=== PATIENT | female | born 1990 | race Two or more races ===

== ENCOUNTER 2017-04-26 17:04 | Emergency (ER) | payer MEDICAID ==
[~2017-04-26] VITALS: Ht 160 cm; Wt 57.6 kg
[2017-04-26 17:04] VITALS: BP 105/70
== END 2017-04-26 18:29 | disposition home or self-care (01) ==
LOC: ER 17:10
DX: N63 Unspecified lump in breast (principal)
CPT/HCPCS: A4606; Z7502; Z7610

== ENCOUNTER 2018-01-15 08:27 | Emergency (ER) | payer MEDICAID ==
[~2018-01-15] VITALS: Ht 162.6 cm; Wt 63.5 kg
[2018-01-15 08:30] VITALS: BP 133/87
== END 2018-01-15 08:57 | disposition home or self-care (01) ==
LOC: ER 08:39
DX: L30.9 Dermatitis, unspecified (principal)
CPT/HCPCS: 99283; A4606; Z7610

== ENCOUNTER 2018-04-21 15:54 | Emergency (ER) | payer MEDICAID ==
[~2018-04-21] VITALS: Ht 160 cm; Wt 58.5 kg
[2018-04-21] MEDS ORDERED: DOXYCYCLINE (16:00)
[2018-04-21] MEDS ORDERED: TRIAMCINOLONE 0.1% CREAM (16:00)
--- NOTE | 2018-04-21 16:05 | NUR ---
pt self presents to er bed 13. c/o headache since yesterday, cold and tingly. pt denies numbness and weakness to extremity. denies cp. stablel vitals. awaiting md mancia.
--- NOTE | 2018-04-21 16:18 | NUR ---
DR STOREY AT BEDSIDE FOR EVAL.
[2018-04-21 16:42] LABS: APPEARANCE,URINE Clear (CLEAR); BILIRUBIN,URINE Negative (NEGATIVE); BLOOD, URINE Negative Ery/uL (NEGATIVE); COLOR,URINE Yellow (YELLOW); KETONES,URINE Negative (NEGATIVE); LEUKOCYTE ESTERASE ,URINE Negative (NEGATIVE); NITRITE, URINE Negative (NEGATIVE); PROTEIN,URINE Negative (NEGATIVE); UGLUCOSE Negative (NEGATIVE); UROBILINOGEN,URINE 0.2 EU/dL (0.2)
[2018-04-21] MEDS ORDERED: KETOROLAC TROMETHAMINE 15 MG/ML VIAL ONE (16:53)
[2018-04-21] MEDS ORDERED: KETOROLAC TROMETHAMINE INJ 60 MG/2 ML VIAL IM ONE (17:00)
--- NOTE | 2018-04-21 17:13 | NUR ---
Patient discharged to home in stable condition. Written and verbal after care instructions given. Patient verbalizes understanding of instruction.
[2018-04-21 17:14] VITALS: BP 125/66
== END 2018-04-21 17:15 | disposition home or self-care (01) ==
LOC: ER 15:57
DX: R51 Headache (principal)
CPT/HCPCS: 81000-TC; 84703-TC; A4606; J1885; Z7610

== ENCOUNTER 2018-06-25 11:26 | Emergency (ER) | payer SELFPAY ==
[~2018-06-25] VITALS: Ht 160 cm; Wt 55.8 kg
[2018-06-25 11:26] VITALS: BP 116/76
[~2018-06-25 11:26] MED LIST: DOXYCYCLINE; TRIAMCINOLONE 0.1% CREAM
== END 2018-06-25 12:14 | disposition home or self-care (01) ==
LOC: ER 11:35
DX: J02.9 Acute pharyngitis, unspecified (principal); K12.0 Recurrent oral aphthae
CPT/HCPCS: 99281; A4606; Z7610; Z7502

== ENCOUNTER 2018-06-30 14:38 | Emergency (ER) | payer SELFPAY ==
[~2018-06-30] VITALS: Ht 160 cm; Wt 56.2 kg
[2018-06-30 15:43] LABS: BASOPHILS % (AUTO) 0.5 % (0.0-2.0); EOSINOPHILS % (AUTO) 2.5 % (0.0-6.0); HEMATOCRIT 37 % (33-45); HEMOGLOBIN 12.1 g/dL (11.5-14.8); LYMPHOCYTES # (AUTO) 1.3 /CMM (0.8-4.8); LYMPHOCYTES % (AUTO) 22.8 % (20.0-44.0); MEAN CORPUSCULAR HGB CONC 33 g/dl (31.0-36.0); MEAN CORPUSCULAR VOLUME 89 fL (82-100); MONOCYTES # (AUTO) 0.4 /CMM (0.1-1.30); MONOCYTES % (AUTO) 6.5 % (2.0-12.0); NEUTROPHILS # (AUTO) 3.9 /CMM (1.8-8.9); NEUTROPHILS % (AUTO) 67.7 % (43.0-81.0); PLATELET COUNT (AUTO) 294 /CMM (150-450); RDW COEFFICIENT OF VARIATION 12.3 (11.5-15.0); RED BLOOD CELL COUNT(AUTO) 4.12 MIL/uL (4.0-5.2); WHITE BLOOD COUNT (AUTO) 5.8 K/uL (4.3-11.0)
[2018-06-30 15:53] LABS: CALCIUM, SERUM 8.4 mg/dL (8.5-10.1); CREATININE 0.8 mg/dL (0.6-1.3)
--- NOTE | 2018-06-30 16:10 | NUR ---
PT REC'D TO C.O PAIN BACK FOR 3 DAYS AWAITING EVALUATION BY ER PROVIDER.
[2018-06-30 16:12] VITALS: BP 131/80
[2018-06-30 16:42] LABS: APPEARANCE,URINE CLEAR (CLEAR); BILIRUBIN,URINE NEGATIVE (NEGATIVE); BLOOD, URINE NEGATIVE Ery/uL (NEGATIVE); COLOR,URINE YELLOW (YELLOW); KETONES,URINE NEGATIVE (NEGATIVE); LEUKOCYTE ESTERASE ,URINE NEGATIVE (NEGATIVE); NITRITE, URINE NEGATIVE (NEGATIVE); PROTEIN,URINE NEGATIVE (NEGATIVE); UGLUCOSE NEGATIVE (NEGATIVE); UROBILINOGEN,URINE 0.2 EU/dL (0.2)
== END 2018-06-30 16:14 | disposition home or self-care (01) ==
LOC: ER 14:40
DX: M54.42 Lumbago with sciatica, left side (principal); M54.41 Lumbago with sciatica, right side; F41.9 Anxiety disorder, unspecified
CPT/HCPCS: 36415; 80048; 81001; 84703; 85025; 99284; A4606; Z7610; 81000-TC

== ENCOUNTER 2018-10-05 09:07 | Emergency (ER) | payer MEDICAID ==
[~2018-10-05] VITALS: Ht 160 cm; Wt 54.4 kg
[2018-10-05 09:16] VITALS: BP 140/79
== END 2018-10-05 10:05 | disposition home or self-care (01) ==
LOC: ER 09:13
DX: N60.12 Diffuse cystic mastopathy of left breast (principal); F41.9 Anxiety disorder, unspecified
CPT/HCPCS: Z7502

== ENCOUNTER 2018-12-01 23:47 | Emergency (ER) | payer MEDICAID ==
[~2018-12-01] VITALS: Ht 160 cm; Wt 54.4 kg
--- NOTE | 2018-12-01 23:57 | NUR ---
BIBRA. C/O "HAVING CHEST PAIN FOR 5X DAYS, RADIATING TO MY BACK" -SOB. -N/V -ACUTE DISTRESS. AOX4.
[2018-12-02] MEDS ORDERED: LIDOCAINE VISCOUS 2% UD 15 ML UDC ONE (00:15)
[2018-12-02] MEDS ORDERED: MAG HYDROX/AL HYDROX/SIMETH 30 ML UDC ONE (00:15)
[2018-12-02] MEDS ORDERED: LIDOCAINE VISCOUS 2% UD 15 ML UDC MM ONE (00:30)
[2018-12-02] MEDS ORDERED: MAG HYDROX/AL HYDROX/SIMETH 30 ML UDC PO ONE (00:30)
[2018-12-02] MEDS ORDERED: LORAZEPAM 1 MG TABLET ONE (00:50)
[2018-12-02] MEDS ORDERED: LORAZEPAM 1 MG TABLET PO ONE (01:00)
[2018-12-02 01:53] VITALS: BP 118/79
== END 2018-12-02 01:53 | disposition home or self-care (01) ==
LOC: ER 23:51
DX: F41.9 Anxiety disorder, unspecified (principal); Z88.5 Allergy status to narcotic agent

== ENCOUNTER 2019-06-14 11:59 | Emergency (ER) | payer MEDICAID ==
[~2019-06-14] VITALS: Ht 160 cm; Wt 61.2 kg
[2019-06-14 12:24] VITALS: BP 116/68
== END 2019-06-14 12:46 | disposition home or self-care (01) ==
LOC: ER 12:05
DX: O26.892 Other specified pregnancy related conditions, second trimester (principal); H92.03 Otalgia, bilateral; O99.342 Other mental disorders complicating pregnancy, second trimester; F41.9 Anxiety disorder, unspecified; Z88.6 Allergy status to analgesic agent; Z3A.20 20 weeks gestation of pregnancy

== ENCOUNTER 2019-11-03 13:48 | Emergency (ER) | payer MEDICAID ==
[~2019-11-03] VITALS: Ht 160 cm; Wt 66.2 kg
[2019-11-03 13:57] VITALS: BP 140/86
== END 2019-11-03 14:22 | disposition home or self-care (01) ==
LOC: ER 13:58
DX: B37.9 Candidiasis, unspecified (principal); F41.9 Anxiety disorder, unspecified; Z88.5 Allergy status to narcotic agent

== ENCOUNTER 2020-09-14 12:30 | Emergency (ER) | payer MEDICAID ==
[~2020-09-14] VITALS: Ht 160 cm; Wt 59.0 kg
[2020-09-14 12:46] VITALS: BP 116/78
--- NOTE | 2020-09-14 14:48 | NUR ---
covid 19 swab collected and sent to lab
--- NOTE | 2020-09-14 14:49 | NUR ---
Patient discharged to home in stable condition. Written and verbal after care instructions given. Patient verbalizes understanding of instruction.
== END 2020-09-14 14:48 | disposition home or self-care (01) ==
LOC: ER 12:33
DX: U07.1 COVID-19 (principal); Z88.5 Allergy status to narcotic agent
CPT/HCPCS: 99283; C9803; U0003